=== PATIENT | female | born 1985 ===

== ENCOUNTER 2018-12-13 09:21 | Outpatient (CLI) | payer OTHER ==
[2018-12-13 10:27] LABS: Hematocrit 33.7 % (30.3-42.9); Hemoglobin 10.8 gm/dl (10.1-14.3); Mean Corpuscular HGB Conc 32 % (30-34); Mean Corpuscular Volume 74 fl (79-97); Platelet Count 234 K/mm3 (140-440); Red Blood Count 4.54 M/mm3 (3.65-5.03); Red Cell Distribution Width 15.8 % (13.2-15.2)
[2018-12-13 10:36] LABS: Alanine Aminotransferase 30 units/L (7-56); Albumin 3.7 g/dL (3.9-5); BUN/Creatinine Ratio 35; Blood Urea Nitrogen 7 mg/dL (7-17); Calcium 9.7 mg/dL (8.4-10.2); Hemolysis Index 8
[2018-12-13 10:42] LABS: Free T4 (Free Thyroxine) 5.34 ng/dL (0.76-1.46)
[2018-12-13 10:44] LABS: Mean Corpuscular Hemoglobin 24 pg (28-32)
== END 2018-12-13 09:22 | disposition home or self-care (01) ==
LOC: LAB 09:21
PROVIDERS: ATTEND Internal Medicine
DX: N92.6 Irregular menstruation, unspecified (principal); E06.9 Thyroiditis, unspecified; R00.2 Palpitations
CPT/HCPCS: 36415; 80053; 84439; 84443; 85027

== ENCOUNTER 2019-04-22 15:47 | Outpatient (CLI) | payer OTHER | END 2019-04-22 15:48 | disposition home or self-care (01) | LOC: LAB 15:47 | PROVIDERS: ATTEND Internal Medicine | DX: E05.90 Thyrotoxicosis, unspecified without thyrotoxic crisis or storm (principal) | CPT/HCPCS: 36415; 84439; 84443 ==

== ENCOUNTER 2022-02-04 10:31 | Emergency (ER) | payer OTHER ==
--- NOTE | 2022-02-04 11:20 | Emergency Department Report ---
ED HPI - General Chief complaint: Vaginal Bleeding Stated complaint: BLEEDING Time Seen by Provider: 02/04/22 11:09 Source: patient Mode of arrival: Ambulatory Limitations: No Limitations - History of Present Illness Initial comments: 36-year-old female with obesity and hypothyroidism presents to the hospital with vaginal bleeding and . This is patient's first which was conceived through IVF. She is currently 12 weeks . She reports a twin gestation and had an ultrasound approximately at 10 weeks showing heart tones. 1 hour prior to arrival patient began having suprapubic cramping and vaginal bleeding. Patient takes PTU for hyperthyroidism Her primary [facility] [facility] in [place] (1 outpatient visit 2 weeks ago). She has not initiated follow-up with high risk ob - Related Data Allergies Allergy/AdvReac Type Severity Reaction Status Date / Time No Known Allergies Allergy Unverified 02/04/22 10:33 ED Review of Systems ROS: Stated complaint: BLEEDING Other details as noted in HPI Comment: All other systems reviewed and negative ED Past Medical Hx - Past Medical History Previous Medical History?: Yes Additional medical history: hyperthyroidism - Surgical History Past Surgical History?: Yes Additional Surgical History: left knee surgery - Social History Smoking Status: Never Smoker Substance Use Type: Prescribed ED Physical Exam - General Limitations: No Limitations - Other Other exam information: General: No acute distress Head: Atraumatic Eyes: normal appearance ENT: Moist mucous membranes Neck: Normal appearance, no midline tenderness Chest: Clear to auscultation bilaterally CV: Regular rate and rhythm Abdomen: Soft, normal bowel sounds, mild suprapubic tenderness, nondistended, no rebound or guarding Back: Normal inspection Extremity: Normal inspection, full range of motion Neuro: Alert O x 3, no facial asymmetry, speech clear, no gross motor sensory deficit Psych: Appropriate behavior Skin: No rash ED Course Vital Signs 02/04/22 02/04/22 02/04/22 10:34 11:18 14:05 Temperature 98.7 F 98.3 F Pulse Rate 78 70 78 Respiratory 18 18 18 Rate Blood Pressure 129/60 Blood Pressure 117/64 127/71 [Left] O2 Sat by Pulse 100 100 95 Oximetry ED Medical Decision Making - Lab Data Result diagrams: 02/04/22 12:23 Lab Results 02/04/22 02/04/22 02/04/22 Range/Units 12:23 12:23 12:23 WBC 6.9 (4.5-11.0) K/mm3 RBC 4.97 (3.65-5.03) M/mm3 Hgb 13.6 (10.1-14.3) gm/dl Hct 41.7 (30.3-42.9) % MCV 84 (79-97) fl MCH 27 L (28-32) pg MCHC 33 (30-34) % RDW 14.3 (13.2-15.2) % Plt Count 235 (140-440) K/mm3 Lymph % (Auto) 19.8 (13.4-35.0) % [place] % (Auto) 12.8 H (0.0-7.3) % Eos % (Auto) 1.2 (0.0-4.3) % Baso % (Auto) 0.1 (0.0-1.8) % Lymph # (Auto) 1.4 (1.2-5.4) K/mm3 [place] # (Auto) 0.9 H (0.0-0.8) K/mm3 Eos # (Auto) 0.1 (0.0-0.4) K/mm3 Baso # (Auto) 0.0 (0.0-0.1) K/mm3 Seg Neutrophils % 66.1 (40.0-70.0) % Seg Neutrophils # 4.6 (1.8-7.7) K/mm3 HCG, Quant [id number] H (0-4) mIU/mL Blood Type O POSITIVE Antibody Screen Negative - Radiology Data Radiology results: report reviewed ULTRASOUND OBSTETRIC INDICATION / CLINICAL INFORMATION: vag bleeding 12 weeks gestation. TECHNIQUE: Transabdominal and Transvaginal. COMPARISON: None available. FINDINGS: Monochorionic, diamniotic twin gestations noted within the endometrial cavity. Baby A: EMBRYO/FETUS: No significant abnormality. - [place]-Rump Length = 5.67 cm = 12, 2 weeks, days - Heart Rate, beats per minute (if present) = 152 Baby B: EMBRYO/FETUS: No significant abnormality. - [place]-Rump Length = 5.85 cm = 12, 3 weeks, days - Heart Rate, beats per minute (if present) = 153 ADNEXA: No significant abnormality. FREE FLUID: None. ADDITIONAL FINDINGS: None. IMPRESSION: Twin, living intrauterine with estimated sonographic age of 12, 2 weeks, days. - Medical Decision Making 36-year-old female with twin gestation currently 12 weeks presents to the hospital with vaginal bleeding since this morning. Bleeding is decreasing during ED stay. At the time a ED evaluation patient has 2 viable IUP. Hemoglobin normal. Rh+. And vital signs stable. Pelvic rest and follow-up with [employer], high risk ob md, and jail officer. Critical Care Time: No Critical care attestation.: If time is entered above; I have spent that time in minutes in the direct care of this critically ill patient, excluding procedure time. ED Disposition Clinical Impression: Threatened miscarriage in early , 12 weeks gestation of Disposition: HOME / SELF CARE / HOMELESS Is pt being admited?: No Does the pt Need Aspirin: No Condition: Stable Instructions: Threatened Miscarriage Additional Instructions: Continue vitamins. It is important that you follow-up with your [employer] doctor and receive referral for a high risk ob/GYN doctor. Follow-up with your jail officer and inform them that you are for closer monitoring and possible medication adjustment. Return if symptoms worsen as indicated by your discharge instructions. Take the copy of your lab work and ultrasound provided to your doctor for follow-up. Referrals: your, [employer] [Other] - 3-5 Days Time of Disposition: 14:16
[2022-02-04 13:01] LABS: Basophils % (Auto) 0.1 % (0.0-1.8); Eosinophils # (Auto) 0.1 K/mm3 (0.0-0.4); Eosinophils % (Auto) 1.2 % (0.0-4.3); Hematocrit 41.7 % (30.3-42.9); Hemoglobin 13.6 gm/dl (10.1-14.3); Lymphocytes # (Auto) 1.4 K/mm3 (1.2-5.4); Lymphocytes % (Auto) 19.8 % (13.4-35.0); Mean Corpuscular HGB Conc 33 % (30-34); Mean Corpuscular Volume 84 fl (79-97); Monocytes # (Auto) 0.9 K/mm3 (0.0-0.8); Monocytes % (Auto) 12.8 % (0.0-7.3); Platelet Count 235 K/mm3 (140-440); Red Blood Count 4.97 M/mm3 (3.65-5.03); Red Cell Distribution Width 14.3 % (13.2-15.2)
--- NOTE | 2022-02-04 13:28 | Ultrasound Report ---
ULTRASOUND OBSTETRIC INDICATION / CLINICAL INFORMATION: vag bleeding 12 weeks gestation. TECHNIQUE: Transabdominal and Transvaginal. COMPARISON: None available. FINDINGS: Monochorionic, diamniotic twin gestations noted within the endometrial cavity. Baby A: EMBRYO/FETUS: No significant abnormality. - [place]-Rump Length = 5.67 cm = 12, 2 weeks, days - Heart Rate, beats per minute (if present) = 152 Baby B: EMBRYO/FETUS: No significant abnormality. - [place]-Rump Length = 5.85 cm = 12, 3 weeks, days - Heart Rate, beats per minute (if present) = 153 ADNEXA: No significant abnormality. FREE FLUID: None. ADDITIONAL FINDINGS: None. IMPRESSION: Twin, living intrauterine with estimated sonographic age of 12, 2 weeks, days. Signer Name: Vinay Wu MD Signed: 02/04/2022 12:53 PM Workstation Name: [id number]
--- NOTE | 2022-02-04 13:28 | Ultrasound Report ---
ULTRASOUND OBSTETRIC INDICATION / CLINICAL INFORMATION: vag bleeding 12 weeks gestation. TECHNIQUE: Transabdominal and Transvaginal. COMPARISON: None available. FINDINGS: Monochorionic, diamniotic twin gestations noted within the endometrial cavity. Baby A: EMBRYO/FETUS: No significant abnormality. - [place]-Rump Length = 5.67 cm = 12, 2 weeks, days - Heart Rate, beats per minute (if present) = 152 Baby B: EMBRYO/FETUS: No significant abnormality. - [place]-Rump Length = 5.85 cm = 12, 3 weeks, days - Heart Rate, beats per minute (if present) = 153 ADNEXA: No significant abnormality. FREE FLUID: None. ADDITIONAL FINDINGS: None. IMPRESSION: Twin, living intrauterine with estimated sonographic age of 12, 2 weeks, days. Signer Name: Vinay Wu MD Signed: 02/04/2022 12:53 PM Workstation Name: [id number]
[2022-02-04 14:10] VITALS: BP 127/71
--- NOTE | 2022-02-06 11:10 | Ultrasound Report ---
ULTRASOUND OBSTETRIC INDICATION / CLINICAL INFORMATION: vag bleeding 12 weeks gestation. TECHNIQUE: Transabdominal and Transvaginal. COMPARISON: None available. FINDINGS: Monochorionic, diamniotic twin gestations noted within the endometrial cavity. Baby A: EMBRYO/FETUS: No significant abnormality. - [place]-Rump Length = 5.67 cm = 12, 2 weeks, days - Heart Rate, beats per minute (if present) = 152 Baby B: EMBRYO/FETUS: No significant abnormality. - [place]-Rump Length = 5.85 cm = 12, 3 weeks, days - Heart Rate, beats per minute (if present) = 153 ADNEXA: No significant abnormality. FREE FLUID: None. ADDITIONAL FINDINGS: None. IMPRESSION: Twin, living intrauterine with estimated sonographic age of 12, 2 weeks, days. Signer Name: Vinay Wu MD Signed: 02/04/2022 12:53 PM Workstation Name: [id number]
== END 2022-02-04 14:34 | disposition home or self-care (01) ==
LOC: ED 10:31
DX: O20.0 Threatened abortion (principal); Z3A.12 12 weeks gestation of pregnancy
CPT/HCPCS: 36415; 76801; 76802; 76817; 84702; 85025; 86850; 86900; 86901; 99284